=== PATIENT | male | born 1965 | race Hispanic/Latino ===

== ENCOUNTER 2020-02-02 08:00 | Outpatient (CLI) | payer BC ==
--- NOTE | 2020-02-02 10:33 | RAD ---
PA AND LATERAL VIEWS CHEST: HISTORY: Fullness of the supraclavicular fossa. FINDINGS: The heart size is normal. The lungs are expanded without lobar consolidation, pneumothoraces, or ple ural effusions. There are mild degenerative changes in the spine. IMPRESSION: No radiographic evidence of acute cardiopulmonary process. POS: [facility]
== END 2020-02-02 08:01 | disposition home or self-care (01) ==
LOC: BICRAD 08:00
PROVIDERS: ATTEND Internal Medicine
DX: R22.2 Localized swelling, mass and lump, trunk (principal)
CPT/HCPCS: 71046

== ENCOUNTER 2020-02-14 07:32 | Outpatient (CLI) | payer BC ==
--- NOTE | 2020-02-14 08:46 | CT ---
CHEST CT: DATE: 02/14/2020. COMPARISON: None. HISTORY: Fullness of the supraclavicular fossa. TECHNIQUE: Axial CT imaging at 3 mm intervals through the chest with IV contrast. Coronal and sagittal reformat coby imaging obtained. FINDINGS: He supraclavicular region appears grossly unremarkable and symmetric bilaterally with no mass lesion or lymphadenopathy appreciated on either side. There is no axillary, mediastinal, or hilar lymphaden opathy noted. Imaged upper abdomen demonstrates diffuse hepatic hypodensity, evidence of hepatic zandra atosis. There is a focal area of hyperdensity within the anterior aspect of the left lobe of the ivan er measuring 1.2 cm, significance uncertain. This could represent a liver lesion or a focal area of fatty sparing. This could be best assessed with ultrasound or potentially abdominal MRI. There is no significant pleural, pericardial, or mediastinal fluid. The vascular structures of the c hest appear patent. There is no pneumothorax on either side. The lung parenchyma appears grossly un remarkable bilaterally. No endobronchial lesion. No worrisome lytic or blastic bone lesion. IMPRESSION: 1. No supraclavicular lymphadenopathy noted on either side. 2. Hepatic steatosis. Focal hyperdensity measuring 1.2 cm within the anterior aspect of the left lo be of the liver as detailed above. Initial study for further evaluation should be ultrasound. Pendi ng results of ultrasound, an abdominal MRI may be required for definitive assessment. CODE T
[2020-02-14] MEDS ORDERED: Iopamidol-370 76% 500 ML 1 ML ONE (14:38)
== END 2020-02-14 07:33 | disposition home or self-care (01) ==
LOC: BICCT 07:32
PROVIDERS: ATTEND Internal Medicine
DX: R22.2 Localized swelling, mass and lump, trunk (principal); K76.0 Fatty (change of) liver, not elsewhere classified; R93.2 Abnormal findings on diagnostic imaging of liver and biliary tract
CPT/HCPCS: 71260; Q9967

== ENCOUNTER 2024-06-01 14:03 | Outpatient (CLI) | payer OTHER, SELFPAY | END 2024-06-01 14:04 | disposition home or self-care (01) | LOC: BICRAD 14:03 | PROVIDERS: ATTEND Neurological Surgery | DX: S22.089D Unspecified fracture of T11-T12 vertebra, subsequent encounter for fracture with routine healing (principal); S32.011D Stable burst fracture of first lumbar vertebra, subsequent encounter for fracture with routine healing | CPT/HCPCS: 72070; 72100 ==